=== PATIENT | female | born 1990 ===

== ENCOUNTER 2020-03-05 14:59 | Emergency (ER) | payer SELFPAY ==
--- NOTE | 2020-03-05 15:33 | Event Note ---
ED Screening Note Date of service: 03/05/20 Time: 15:32 ED Screening Note: 29-year-old female presents to the emergency room in a manic state requesting refills on her clonazepam and Risperdal. Patient states that she has been out for a week. Family member reports that they have tried twice to go follow-up with mental health provider and both times they have been closed. This initial assessment/diagnostic orders/clinical plan/treatment(s) is/are subject to change based on patients health status, clinical progression and re- assessment by fellow clinical providers in the ED. Further treatment and workup at subsequent clinical providers discretion. Patient/guardian urged not to elope from the ED as their condition may be serious if not clinically assessed and managed. Initial orders include:
[2020-03-05 16:02] LABS: Basophils % (Auto) 0.3 % (0.0-1.8); Eosinophils # (Auto) 0.1 K/mm3 (0.0-0.4); Eosinophils % (Auto) 0.6 % (0.0-4.3); Hemoglobin 14.3 gm/dl (10.1-14.3); Lymphocytes # (Auto) 2.5 K/mm3 (1.2-5.4); Lymphocytes % (Auto) 21.6 % (13.4-35.0); Mean Corpuscular HGB Conc 36 % (30-34); Mean Corpuscular Volume 89 fl (79-97); Monocytes # (Auto) 0.8 K/mm3 (0.0-0.8); Monocytes % (Auto) 7.1 % (0.0-7.3); Platelet Count 308 K/mm3 (140-440); Red Blood Count 4.52 M/mm3 (3.65-5.03); Red Cell Distribution Width 12.8 % (13.2-15.2)
[2020-03-05 16:20] LABS: Alanine Aminotransferase 16 units/L (7-56); Albumin 4.7 g/dL (3.9-5); BUN/Creatinine Ratio 16; Blood Urea Nitrogen 13 mg/dL (7-17); Calcium 9.2 mg/dL (8.4-10.2); Hemolysis Index 5
--- NOTE | 2020-03-05 17:14 | Emergency Department Report ---
<WILMAR RANDOLPH - Last Filed: 03/05/20 19:07> ED Psych HPI - General Chief Complaint: Psych Stated Complaint: RAN OUT OF RISPERDOL Time Seen by Provider: 03/05/20 16:34 Source: patient, family Mode of arrival: Ambulatory Limitations: No Limitations - History of Present Illness Initial Comments: 29-year-old female the past medical history of bipolar disorder/shelbi presents to the hospital with abnormal behavior and requesting a refill on her Risperdal and Klonopin. Patient is talking in a cartoon like voice that is not fluent but interrupted. She states that sometimes she speaks in a cartoon voice to express herself. She denies auditory visual hallucinations, suicidal ideation, or homicidal ideation. She also denies physical complaints. Her is at the bedside and states that her behavior and voice is not normal at this time. She admits to using methamphetamine last night. She apparently was admitted to [facility] approximately 1 month ago for about 5 days for combative/violent behavior. Per this was her first and only episode of combative/violent behavior. Patient was apparently discharged with psychiatric meds but has been out x1 week. [place] prescription monitoring site reviewed. The only controlled substance filled by the patient this year with Percocet 10/325 on April 22, 2019. There is no record of clonazepam/Klonopin being filled under her name in [place]. Patient denies filling prescriptions in another state - Related Data Home Medications Medication Instructions Recorded Confirmed Last Taken KlonoPIN 0.5 mg PO BID 03/07/20 03/07/20 Unknown risperiDONE [RisperDAL] 0.5 mg PO BID 03/07/20 03/07/20 Unknown Previous Rx's Medication Instructions Recorded Last Taken Type FLUoxetine [PROzac] 20 mg PO QHS #30 capsule 03/09/20 Unknown Rx OLANzapine [ZyPREXA] 7.5 mg PO QHS #30 tablet 03/09/20 Unknown Rx Valproic Acid [Depakene] 500 mg PO TID #90 capsule 03/09/20 Unknown Rx Allergies Allergy/AdvReac Type Severity Reaction Status Date / Time Penicillins Allergy Hives Verified 03/05/20 15:27 ED Review of Systems Comment: All other systems reviewed and negative ED Past Medical Hx - Past Medical History Hx Psychiatric Treatment: Yes (BIPOLAR MANIC) - Medications Home Medications: Home Medications Medication Instructions Recorded Confirmed Last Taken Type KlonoPIN 0.5 mg PO BID 03/07/20 03/07/20 Unknown History risperiDONE [RisperDAL] 0.5 mg PO BID 03/07/20 03/07/20 Unknown History FLUoxetine [PROzac] 20 mg PO QHS #30 capsule 03/09/20 Unknown Rx OLANzapine [ZyPREXA] 7.5 mg PO QHS #30 tablet 03/09/20 Unknown Rx Valproic Acid [Depakene] 500 mg PO TID #90 capsule 03/09/20 Unknown Rx ED Physical Exam - General Limitations: No Limitations - Other Other exam information: General: No acute distress Head: Atraumatic Eyes: normal appearance ENT: Moist mucous membranes Neck: Normal appearance, no midline tenderness Chest: Clear to auscultation bilaterally CV: Regular rate and rhythm Abdomen: Soft, normal bowel sounds, nontender, nondistended, no rebound or guarding Back: Normal inspection Extremity: Normal inspection, full range of motion Neuro: Alert O x 3, no facial asymmetry, speech clear, no gross motor sensory deficit Psych: Speaking in a cartoon like voice with interrupted voice Skin: No rash ED Course - Reevaluation(s) Reevaluation #1: 03/05/20 19:09 Patient did receive prior to [place] due to poor cooperation because she tended to leave the department after decision to make her a 1013. Still awaiting a urine culture ED Medical Decision Making - Lab Data Result diagrams: 03/05/20 15:34 03/05/20 15:34 Lab Results 03/05/20 03/05/20 03/05/20 Range/Units 15:34 15:34 15:34 WBC 11.4 H (4.5-11.0) K/mm3 RBC 4.52 (3.65-5.03) M/mm3 Hgb 14.3 (10.1-14.3) gm/dl Hct 40.0 (30.3-42.9) % MCV 89 (79-97) fl MCH 32 (28-32) pg MCHC 36 H (30-34) % RDW 12.8 L (13.2-15.2) % Plt Count 308 (140-440) K/mm3 Lymph % (Auto) 21.6 (13.4-35.0) % [place] % (Auto) 7.1 (0.0-7.3) % Eos % (Auto) 0.6 (0.0-4.3) % Baso % (Auto) 0.3 (0.0-1.8) % Lymph # (Auto) 2.5 (1.2-5.4) K/mm3 [place] # (Auto) 0.8 (0.0-0.8) K/mm3 Eos # (Auto) 0.1 (0.0-0.4) K/mm3 Baso # (Auto) 0.0 (0.0-0.1) K/mm3 Seg Neutrophils % 70.4 H (40.0-70.0) % Seg Neutrophils # 8.0 H (1.8-7.7) K/mm3 Sodium 137 (137-145) mmol/L Potassium 3.7 (3.6-5.0) mmol/L Chloride 102.9 (98-107) mmol/L Carbon Dioxide 23 (22-30) mmol/L Anion Gap 15 mmol/L BUN 13 (7-17) mg/dL Creatinine 0.8 (0.6-1.2) mg/dL Estimated GFR > 60 ml/min BUN/Creatinine Ratio 16 % Glucose 109 H (65-100) mg/dL Calcium 9.2 (8.4-10.2) mg/dL Total Bilirubin 0.40 (0.1-1.2) mg/dL AST 24 (5-40) units/L ALT 16 (7-56) units/L Alkaline Phosphatase 62 (35-129) units/L Total Protein 7.5 (6.3-8.2) g/dL Albumin 4.7 (3.9-5) g/dL Albumin/Globulin Ratio 1.7 % HCG, Qual (Negative) Salicylates < 0.3 L (2.8-20.0) mg/dL Acetaminophen (10.0-30.0) ug/mL Plasma/Serum Alcohol (0-0.07) % 03/05/20 03/05/20 03/05/20 Range/Units 15:34 16:06 16:44 WBC (4.5-11.0) K/mm3 RBC (3.65-5.03) M/mm3 Hgb (10.1-14.3) gm/dl Hct (30.3-42.9) % MCV (79-97) fl MCH (28-32) pg MCHC (30-34) % RDW (13.2-15.2) % Plt Count (140-440) K/mm3 Lymph % (Auto) (13.4-35.0) % [place] % (Auto) (0.0-7.3) % Eos % (Auto) (0.0-4.3) % Baso % (Auto) (0.0-1.8) % Lymph # (Auto) (1.2-5.4) K/mm3 [place] # (Auto) (0.0-0.8) K/mm3 Eos # (Auto) (0.0-0.4) K/mm3 Baso # (Auto) (0.0-0.1) K/mm3 Seg Neutrophils % (40.0-70.0) % Seg Neutrophils # (1.8-7.7) K/mm3 Sodium (137-145) mmol/L Potassium (3.6-5.0) mmol/L Chloride (98-107) mmol/L Carbon Dioxide (22-30) mmol/L Anion Gap mmol/L BUN (7-17) mg/dL Creatinine (0.6-1.2) mg/dL Estimated GFR ml/min BUN/Creatinine Ratio % Glucose (65-100) mg/dL Calcium (8.4-10.2) mg/dL Total Bilirubin (0.1-1.2) mg/dL AST (5-40) units/L ALT (7-56) units/L Alkaline Phosphatase (35-129) units/L Total Protein (6.3-8.2) g/dL Albumin (3.9-5) g/dL Albumin/Globulin Ratio % HCG, Qual Negative (Negative) Salicylates (2.8-20.0) mg/dL Acetaminophen 5.0 L (10.0-30.0) ug/mL Plasma/Serum Alcohol < 0.01 (0-0.07) % - Medical Decision Making Case discussed with mental health and patient meets criteria for 1013. UDS UA pending, otherwise patient is medically cleared Critical Care Time: No ED Disposition Clinical Impression: Bipolar disorder, manic, Methamphetamine abuse, Noncompliance with medication regimen Disposition: DC/TX-65 PSY HOSP/PSY UNIT Condition: Stable Prescriptions: FLUoxetine [PROzac] 20 mg PO QHS #30 capsule OLANzapine [ZyPREXA] 7.5 mg PO QHS #30 tablet Valproic Acid [Depakene] 500 mg PO TID #90 capsule <ADELAIDA ROJAS - Last Filed: 03/09/20 12:17> ED Review of Systems ROS: Stated complaint: RAN OUT OF RISPERDOL Other details as noted in HPI ED Course Vital Signs 03/05/20 03/05/20 03/05/20 15:29 18:18 20:10 Temperature 98.1 F 98.1 F Pulse Rate 99 H 90 Respiratory 20 17 18 Rate Blood Pressure 110/84 Blood Pressure 103/59 [Right] O2 Sat by Pulse 97 98 98 Oximetry 03/05/20 03/06/20 03/06/20 20:11 01:30 08:06 Temperature 97.6 F 97.6 F Pulse Rate 92 H 68 Respiratory 18 18 18 Rate Blood Pressure Blood Pressure 115/62 104/62 [Right] O2 Sat by Pulse 100 100 Oximetry 03/06/20 03/07/20 03/07/20 19:58 02:00 07:31 Temperature 97.5 F L 98.2 F 97.7 F Pulse Rate 100 H 89 70 Respiratory 16 16 16 Rate Blood Pressure 104/69 Blood Pressure 100/57 102/56 [Right] O2 Sat by Pulse 97 98 98 Oximetry 03/07/20 03/07/20 03/08/20 14:54 20:00 01:12 Temperature 97.6 F 97.3 F L 98.2 F Pulse Rate 139 H 78 70 Respiratory 16 18 18 Rate Blood Pressure 112/74 132/79 Blood Pressure 128/70 [Right] O2 Sat by Pulse 97 97 99 Oximetry 03/08/20 03/09/20 03/09/20 08:21 02:10 10:22 Temperature 98.2 F 97.7 F Pulse Rate 60 69 100 H Respiratory 18 16 19 Rate Blood Pressure Blood Pressure 135/78 111/75 114/81 [Right] O2 Sat by Pulse 100 100 98 Oximetry ED Medical Decision Making - Lab Data Result diagrams: 03/07/20 07:06 03/05/20 15:34 - Medical Decision Making Patient to be transferred to [facility] for further crisis intervention Critical care attestation.: If time is entered above; I have spent that time in minutes in the direct care of this critically ill patient, excluding procedure time. ED Disposition Is pt being admited?: No Does the pt Need Aspirin: No Time of Disposition: 12:16
[2020-03-05] MEDS ORDERED: ZIPRASIDONE MESYLATE 20 MG VIAL IM ONE ×5 (17:35→20:17)
[2020-03-05] MEDS ORDERED: diphenhydrAMINE 50 MG/ML VIAL ONE (20:28)
[2020-03-05] MEDS ORDERED: LORazepam 2 MG/ML VIAL ONE (20:29)
[2020-03-05 22:24] LABS: Amphetamine Screen,Urine PRESUMPTIVE POSITIVE; Benzodiazepines Screen,Urine PRESUMPTIVE NEGATIVE; Cannabinoid Screen,Urine PRESUMPTIVE POSITIVE; Cocaine Screen,Urine PRESUMPTIVE NEGATIVE; Methadone Screen,Urine PRESUMPTIVE NEGATIVE; Opiate Screen,Urine PRESUMPTIVE NEGATIVE
[2020-03-05 22:37] LABS: Bacteria,Urine 1+ /HPF (Negative); Bilirubin,Urine NEG (Negative); Blood,Urine NEG (Negative); Color,Urine Yellow (Yellow); Mucus,Urine FEW /HPF; Protein,Urine <15 mg/dL mg/dL (Negative); Urobilinogen,Urine < 2.0 mg/dL (<2.0)
[2020-03-06] MEDS ORDERED: HALOPERIDOL LACTATE 5 MG/1 ML INJ IM PRN (02:48)
[2020-03-06] MEDS: diphenhydrAMINE 50 MG/ML VIAL IM PRN ×2 (02:50→10:34)
[2020-03-06] MEDS: LORazepam 2 MG/ML VIAL IM PRN ×2 (02:50→10:34)
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
[2020-03-06] MEDS ORDERED: risperiDONE 0.25 MG TAB PO SCH (11:00)
[2020-03-06] MEDS: risperiDONE 1 MG TAB PO SCH ×2 (15:13→21:45)
[2020-03-07 07:37] LABS: Basophils % (Auto) 0.4 % (0.0-1.8); Eosinophils # (Auto) 0.1 K/mm3 (0.0-0.4); Eosinophils % (Auto) 2.8 % (0.0-4.3); Lymphocytes % (Auto) 45.2 % (13.4-35.0); Mean Corpuscular HGB Conc 37 % (30-34); Mean Corpuscular Volume 87 fl (79-97); Monocytes # (Auto) 0.4 K/mm3 (0.0-0.8); Monocytes % (Auto) 7.9 % (0.0-7.3); Platelet Count 254 K/mm3 (140-440); Red Blood Count 4.24 M/mm3 (3.65-5.03); Red Cell Distribution Width 12.8 % (13.2-15.2)
[2020-03-07 08:05] LABS: Hematocrit 36.9 % (30.3-42.9); Hemoglobin 13.5 gm/dl (10.1-14.3)
[2020-03-07] MEDS: risperiDONE 1 MG TAB PO SCH (09:48)
[2020-03-07] MEDS ORDERED: WATER FOR INJ Sterile (PF) 10 ML ONE (10:22)
[2020-03-07] MEDS: ZIPRASIDONE MESYLATE 20 MG VIAL IM SCH ×2 (10:32→22:20)
--- NOTE | 2020-03-07 11:01 | Progress Note ---
Subjective - Reason for Consult Consult date: 03/07/20 Reason for consult: MHE Requesting physician: WILMAR RANDOLPH - Chief Complaint Chief complaint: Psych HPI Patient seen today, patient is hyperverbal, hyperactive, restless irritable and very demanding, patient current symptoms still present with acute manic disorder. REVIEW OF SYSTEMS Constitutional: Negative for weight loss ENT: Negative for stridor Respiratory: Negative for cough or hemoptysis All other systems reviewed and are negative MENTAL STATUS EXAMINATION General Appearance and Behavior: Age appropriate, good hygiene, not wearing a ppropriate clothes, good eye contact, cooperative polite with questioning. Cooperation: Participating/engaged Psychomotor Behavior: Psychomotor agitation Mood: Good Affect and affective range: euthymic, euphoric Thought Process:Circumstantial, Illogical, Thought Content: Flight of ideas, Illogical, Grandiose, Speech: pressured, loud volume at times Intellectual Functioning: Average Suicidal Ideation: Denies SI Homicidal Ideation: Denies HIl Impulse Control: Impaired Insight and Judgment: Limited insight and judgment Memory: Normal, Attention: Divided attention impaired Orientation: Alert, oriented, Treatment Plan Assessment and Plan - Psychiatric problem (1) Bipolar disorder, manic Current Visit: Yes Status: Acute (2) Methamphetamine abuse Current Visit: Yes Status: Acute MEDICATIONS: We will start patient on Valproate today. Risks, benefits and alternatives of medications discussed with the patient, questions answered and consent obtained from patient. PSYCHOTHERAPY: Supportive psychotherapy provided MEDICAL: Per primary team DELIRIUM PRECAUTIONS: Please re-orient patient frequently, keep lights on during the day, and minimize benzodiazepines and opiates as these medications could worsen patient's confusion. 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 Please contact with any questions and/or concerns. Mental Status Exam - Vital signs Last Vital Signs Temp 97.7 F 03/07/20 07:31 Pulse 70 03/07/20 07:31 Resp 16 03/07/20 07:31 BP 104/69 03/07/20 07:31 Pulse Ox 98 03/07/20 07:31 Assessment and Plan - Patient Problems (1) Bipolar disorder, manic Current Visit: Yes Status: Acute (2) Methamphetamine abuse Current Visit: Yes Status: Acute
[2020-03-07] MEDS: NICOTINE 14 MG/24 HR PATCH TD SCH (11:42)
[2020-03-07] MEDS: VALPROIC ACID 250 MG CAP PO SCH ×2 (14:53→20:31)
[2020-03-07] MEDS: FLUoxetine 20 MG CAP PO SCH (22:21)
[2020-03-08] MEDS: VALPROIC ACID 250 MG CAP PO SCH ×3 (08:20→20:22)
--- NOTE | 2020-03-08 10:20 | Progress Note ---
Subjective - Reason for Consult Consult date: 03/08/20 Reason for consult: MHE Requesting physician: WILMAR RANDOLPH - Chief Complaint Chief complaint: Psych HPI Patient seen today, making unreasonable demands, says she would like me to evaluate her for her head and heart, asked if i needed blood or urine from her today. patient is hyperverbal, hyperactive, restless irritable and very demanding, patient current symptoms still present with acute manic disorder. REVIEW OF SYSTEMS Constitutional: Negative for weight loss ENT: Negative for stridor Respiratory: Negative for cough or hemoptysis All other systems reviewed and are negative MENTAL STATUS EXAMINATION General Appearance and Behavior: Age appropriate, good hygiene, not wearing appropriate clothes, good eye contact, cooperative polite with questioning. Cooperation: Participating/engaged Psychomotor Behavior: Psychomotor agitation Mood: Good Affect and affective range: euthymic, euphoric Thought Process:Circumstantial, Illogical, Thought Content: Flight of ideas, Illogical, Grandiose, Speech: pressured, loud volume at times Intellectual Functioning: Average Suicidal Ideation: Denies SI Homicidal Ideation: Denies HIl Impulse Control: Impaired Insight and Judgment: Limited insight and judgment Memory: Normal, Attention: Divided attention impaired Orientation: Alert, oriented, Treatment Plan Assessment and Plan - Psychiatric problem (1) Bipolar disorder, manic Current Visit: Yes Status: Acute (2) Methamphetamine abuse Current Visit: Yes Status: Acute MEDICATIONS: We will start patient on Valproate today. Increase valproate Risks, benefits and alternatives of medications discussed with the patient, questions answered and consent obtained from patient. PSYCHOTHERAPY: Supportive psychotherapy provided MEDICAL: Per primary team DELIRIUM PRECAUTIONS: Please re-orient patient frequently, keep lights on during the day, and minimize benzodiazepines and opiates as these medications could worsen patient's confusion. 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 Please contact with any questions and/or concerns. Mental Status Exam - Vital signs Last Vital Signs Temp 98.2 F 03/08/20 01:12 Pulse 60 03/08/20 08:21 Resp 18 03/08/20 08:21 BP 135/78 03/08/20 08:21 Pulse Ox 100 03/08/20 08:21 Assessment and Plan - Patient Problems (1) Bipolar disorder, manic Current Visit: Yes Status: Acute (2) Methamphetamine abuse Current Visit: Yes Status: Acute
[2020-03-08] MEDS: ZIPRASIDONE MESYLATE 20 MG VIAL IM SCH (10:50)
[2020-03-08] MEDS: NICOTINE 14 MG/24 HR PATCH TD SCH (10:57)
[2020-03-08] MEDS: FLUoxetine 20 MG CAP PO SCH (22:02)
[2020-03-09] MEDS: VALPROIC ACID 250 MG CAP PO SCH (08:16)
[2020-03-09] MEDS: LORazepam 2 MG/ML VIAL IM PRN (08:35)
[2020-03-09] MEDS: NICOTINE 14 MG/24 HR PATCH TD SCH (09:58)
[2020-03-09 10:23] VITALS: BP 114/81
--- NOTE | 2020-03-09 10:52 | Progress Note ---
Subjective - Reason for Consult Consult date: 03/09/20 Reason for consult: MHE Requesting physician: WILMAR RANDOLPH - Chief Complaint Chief complaint: Psych HPI Patient is seen today in room, patient appears less verbal, less demanding and calm. Patient reports feeling more better and more like herself today she was aware that she was talking a lot earlier, and glad that she is back on her meds patient asked what each specific medication is treating. Patient reports she feels good to go back home now, denies having any abnormal thought disorder or intrusive ideations. REVIEW OF SYSTEMS Constitutional: Negative for weight loss ENT: Negative for stridor Respiratory: Negative for cough or hemoptysis All other systems reviewed and are negative MENTAL STATUS EXAMINATION General Appearance and Behavior: Age appropriate, good hygiene, wearing appropriate clothes, good eye contact, cooperative polite with questioning. Cooperation: Participating/engaged Psychomotor Behavior: unremarkable and within normal limits Mood: Good Affect and affective range: congruent with mood Thought Process: Fluent/Logical, Thought Content: Within reality, Speech: Normal volume, Regular rate and rhythm, Intellectual Functioning: Average Suicidal Ideation: Denies SI Homicidal Ideation: Denies HI Impulse Control: Unimpaired Insight and Judgment: Normal insight and judgment, Memory: Normal, Attention: Normal, Orientation: Alert, oriented, Assessment and Plan - Psychiatric problem (1) Bipolar disorder, manic Current Visit: Yes Status: Acute (2) Methamphetamine abuse Current Visit: Yes Status: Acute MEDICATIONS: Discharge patient with current medication Risks, benefits and alternatives of medications discussed with the patient, questions answered and consent obtained from patient. PSYCHOTHERAPY: Supportive psychotherapy provided MEDICAL: Per primary team DELIRIUM PRECAUTIONS: Please re-orient patient frequently, keep lights on during the day, and minimize benzodiazepines and opiates as these medications could worsen patient's confusion. 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 Please contact with any questions and/or concerns. Mental Status Exam - Vital signs Last Vital Signs Temp 97.7 F 03/09/20 10:22 Pulse 100 H 03/09/20 10:22 Resp 19 03/09/20 10:22 BP 114/81 03/09/20 10:22 Pulse Ox 98 03/09/20 10:22 Assessment and Plan - Patient Problems (1) Bipolar disorder, manic Status: Acute (2) Methamphetamine abuse Status: Acute
== END 2020-03-09 16:51 ==
LOC: ED 14:59
DX: F15.10 Other stimulant abuse, uncomplicated (principal); F31.10 Bipolar disorder, current episode manic without psychotic features, unspecified; Z91.14 Patient's other noncompliance with medication regimen; Z88.0 Allergy status to penicillin; Z79.899 Other long term (current) drug therapy
CPT/HCPCS: 36415; 80053; 80307; 81001; 84703; 85025; 96372; 99285; J1200; J1630; J2060; J3486; 80320; G0480